=== PATIENT | female | born 1940 | race Two or more races ===

== ENCOUNTER → 2017-05-02 | Emergency (ER) | payer OTHER ==
[~2017-05-02] VITALS: Ht 160 cm; Wt 61.2 kg
[~2017-05-02] MED LIST: CLONAZEPAM0.5 MG; SYNTHROID75 MCG; XANAX XR0.5 MG
== END | disposition home or self-care (01) ==
LOC: ER 14:34
DX: R05 Cough (principal); J11.1 Influenza due to unidentified influenza virus with other respiratory manifestations